=== PATIENT | male | born 1980 | race Caucasian/White ===

== ENCOUNTER 2019-04-11 12:19 | Emergency (ER) | payer OTHER ==
[2019-04-11 12:44] VITALS: BP 113/71
[2019-04-11] MEDS ORDERED: Acetaminophen TAB* 325 MG PO ONE (12:54)
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
== END 2019-04-11 14:08 | disposition home or self-care (01) ==
LOC: UCCORT 12:19
DX: S93.401A Sprain of unspecified ligament of right ankle, initial encounter (principal); S80.811A Abrasion, right lower leg, initial encounter; Y08.89XA Assault by other specified means, initial encounter; Y93.89 Activity, other specified; Y92.099 Unspecified place in other non-institutional residence as the place of occurrence of the external cause; Y99.0 Civilian activity done for income or pay; Z87.891 Personal history of nicotine dependence; S80.11XA Contusion of right lower leg, initial encounter
CPT/HCPCS: 99213; A9270-GY; G0463